=== PATIENT | female | born 1945 | race Caucasian/White ===

== ENCOUNTER 2024-12-14 14:26 | Emergency (ER) | payer MEDICARE ==
[2024-12-14 14:55] LABS: BASOPHILS ABSOLUTE AUTO 0.04 K/uL (0.00-0.20); BASOPHILS PERCENT AUTO 0.4 % (0.0-2.0); EOSINOPHILS ABSOLUTE AUTO 0.23 K/uL (0.00-0.50); EOSINOPHILS PERCENT AUTO 2.5 % (0.0-5.0); IMMATURE GRAN ABSOLUTE AUTO 0.02 10^3/uL (0.00-0.04); IMMATURE GRAN PERCENT AUTO 0.2 % (0.0-0.4); LYMPHOCYTES ABSOLUTE AUTO 2.82 K/uL (0.50-3.50); LYMPHOCYTES PERCENT AUTO 31.0 % (10.0-50.0); MONOCYTES ABSOLUTE AUTO 0.70 K/uL (0.00-1.00); MONOCYTES PERCENT AUTO 7.7 % (2.0-14.0); NEUTROPHILS ABSOLUTE AUTO 5.28 K/uL (1.40-7.00); NEUTROPHILS PERCENT AUTO 58.2 % (45.0-80.0); PLATELET COUNT,PLT 253 K/uL (150-350); RED BLOOD CELL COUNT 4.38 M/uL (3.77-5.09); RED CELL DISTRIBUTION WIDTH 12.2 % (11.2-14.1); WHITE BLOOD CELL COUNT,WBC 9.1 K/uL (4.0-10.2)
[2024-12-14 15:17] LABS: ALANINE AMINOTRANSFERASE,ALT 18 U/L (12-78); ASPARTATE AMNIOTRANSFERASE,AST 19 U/L (15-37); BILIRUBIN TOTAL 0.4 mg/dL (0.2-1.0); BLOOD UREA NITROGEN,BUN 7 mg/dL (7-18); CARBON DIOXIDE,CO2 29.1 mmol/L (21.0-32.0); CHLORIDE,CL 105 mmol/L (98-107); CREATININE 0.75 mg/dL (0.51-1.17); ESTIMATED GFR 82 mL/min (>=60); GLUCOSE RANDOM 91 mg/dL (70-99); POTASSIUM,K 4.0 mmol/L (3.5-5.1); PROTEIN TOTAL,TP 6.5 g/dL (6.4-8.2); SODIUM,NA 142 mmol/L (136-145)
[2024-12-14 15:22] LABS: LACTIC ACID 0.8 mmol/L (0.4-2.0)
== END 2024-12-14 17:35 | disposition home or self-care (01) ==
LOC: LL.ED 14:26
DX: K59.00 Constipation, unspecified (principal); E78.00 Pure hypercholesterolemia, unspecified; Z91.048 Other nonmedicinal substance allergy status; Z91.09 Other allergy status, other than to drugs and biological substances; Z79.899 Other long term (current) drug therapy
CPT/HCPCS: 36415; 74018; 80053; 83605; 85025; 99284